=== PATIENT | female | born 1945 | race Caucasian/White ===

== ENCOUNTER → 2018-08-24 | Outpatient (CLI) | payer BC, MEDICARE ==
--- NOTE | 2018-08-24 13:33 | KCIC ---
MRI of the lumbar spine without contrast 08/24/2018 CLINICAL HISTORY: Chronic low back pain which radiates down the right leg. TECHNIQUE: Unenhanced T1-weighted and T2-weighted sagittal and axial and inversion recovery sagittal images of the lumbar spine were obtained. FINDINGS: Minimal S-shaped curvature of the thoracolumbar spine is seen. Degenerative signal changes are seen involving all of the disks of the lumbar spine. Degenerative signal changes are seen within the marrow surrounding these discs. The conus medullaris is normal morphology, position, and signal characteristics. Moderate to severe hydronephrosis and hydroureter is seen bilaterally of uncertain etiology. This is incompletely evaluated on this study. At the L1-2 and L2-3 disc spaces there are minimal generalized disc bulges. Degenerative changes are seen involving the facet joints bilaterally. There is mild ligamentum flavum hypertrophy bilaterally. These findings do not result in significant central spinal canal or neural foraminal stenosis. At the L3-4 disc space there is a mild to moderate generalized disc bulge. Degenerative changes are seen involving the facet joints bilaterally. There is mild ligamentum flavum hypertrophy bilaterally. These findings when combined result in mild central spinal canal stenosis. No neural foraminal stenosis is seen. At the L4-5 disc space there is a moderate generalized disc bulge. Degenerative changes are seen involving the facet joints bilaterally. There is mild to moderate ligamentum flavum hypertrophy bilaterally. These findings when combined result in mild to moderate central spinal canal stenosis. No neural foraminal stenosis is seen. At the L5-S1 disc space there is a mild generalized disc bulge. Degenerative changes are seen involving the facet joints bilaterally. These findings when combined do not result in significant central spinal canal or neural foraminal stenosis. IMPRESSION: 1. The changes of degenerative disc disease are seen involving the lumbar spine. These findings result in mild central spinal canal stenosis at L3-4 and mild to moderate central spinal canal stenosis at L4-5. No neural foraminal stenosis is seen. 2. Moderate to severe hydronephrosis and hydroureter of uncertain etiology. Electronically signed by: Jarret Felipe MD (08/24/2018 1:31 PM) [id number]
== END | disposition home or self-care (01) ==
LOC: KCIC MRI 11:51
PROVIDERS: ATTEND Physician Assistant
DX: M51.16 Intervertebral disc disorders with radiculopathy, lumbar region (principal); M48.061 Spinal stenosis, lumbar region without neurogenic claudication; N13.39 Other hydronephrosis
CPT/HCPCS: 72148

== ENCOUNTER → 2019-01-24 | Outpatient (CLI) | payer BC, MEDICARE ==
--- NOTE | 2019-01-24 16:27 | KCIC ---
MR of the musculoskeletal pelvis and MR of the right hip HISTORY: Right hip pain after a fall yesterday. No prior study for comparison TECHNIQUE: Routine multiplanar sequences are obtained through the right hip and through the musculoskeletal pelvis. 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 Subchondral marrow edema and cystic change is likely degenerative. No evidence of aggressive bone destruction or acute fracture. No specific evidence of osteonecrosis at the femoral head. Moderate right hip joint effusion of uncertain sterility. Degenerative tear of the anterior labrum. Gluteus minimus and gluteus medius tendons are intact. Hamstring tendon intact. Iliopsoas tendon intact. Rectus femoris tendon attachment intact. Musculoskeletal pelvis No bone lesion or bone destruction is seen. No significant left hip joint effusion. Sacroiliac joints and pubic symphysis appear intact. Major tendon attachments appear intact. The inferior urinary bladder is displaced inferiorly, well below the pelvic floor. This is most likely a inferior bladder herniation due to pelvic floor collapse, versus a prolapse. The visualized ureters are dilated bilaterally. IMPRESSION: 1. Moderate to severe right hip primary osteoarthritis. 2. Moderate right hip joint effusion of uncertain sterility. 3. No evidence of acute fracture. 4. Extensive inferior urinary bladder herniation, may be due to pelvic floor collapse. 5. Degenerative anterior labral tear. 6. Moderate bilateral hydroureter of the visualized segments of ureter, uncertain etiology. Electronically signed by: Orion Lucero MD (01/24/2019 4:24 PM) [id number]
== END | disposition home or self-care (01) ==
LOC: KCIC MRI 14:38
PROVIDERS: ATTEND Physician Assistant
DX: S73.191A Other sprain of right hip, initial encounter (principal); M16.11 Unilateral primary osteoarthritis, right hip; M25.451 Effusion, right hip; N32.89 Other specified disorders of bladder; N13.4 Hydroureter; M54.16 Radiculopathy, lumbar region; X58.XXXA Exposure to other specified factors, initial encounter; Y93.89 Activity, other specified; Y92.89 Other specified places as the place of occurrence of the external cause; Y99.8 Other external cause status
CPT/HCPCS: 72195; 73721